=== PATIENT | female | born 1950 | race Two or more races ===

== ENCOUNTER 2018-07-29 09:34 | Outpatient (CLI) | payer OTHER ==
[~2018-07-29 09:34] MED LIST: LIPITOR20 MG PO; NAPROXEN SODIU550 M1 PO
== END 2018-07-29 09:44 | disposition home or self-care (01) ==
LOC: SONOGRAMA 09:34 → MAMO-SONO 09:45
DX: N84.0 Polyp of corpus uteri (principal); D25.2 Subserosal leiomyoma of uterus; N95.0 Postmenopausal bleeding

== ENCOUNTER 2018-11-10 13:30 | Outpatient (CLI) | payer OTHER | END 2018-11-10 13:34 | disposition home or self-care (01) | LOC: SONOGRAMA 13:30 → MAMO-SONO 14:15 | DX: D25.2 Subserosal leiomyoma of uterus (principal); N95.0 Postmenopausal bleeding ==